=== PATIENT | female | born 1940 | race Caucasian/White ===

== ENCOUNTER 2024-12-12 07:28 | Emergency (ER) | payer MEDICARE ==
[~2024-12-12] VITALS: Ht 152.4 cm; Wt 70.8 kg
[2024-12-12] MEDS ORDERED: ACETAMINOPHEN ES 500 MG TABLET ONE (08:32)
[2024-12-12] MEDS: ACETAMINOPHEN 325 MG TABLET PO ONE (08:34)
[2024-12-12 09:55] VITALS: BP 130/75; TEMP 98.7; O2SAT 99
== END 2024-12-12 09:55 | disposition home or self-care (01) ==
LOC: ER 07:33
DX: S20.219A Contusion of unspecified front wall of thorax, initial encounter (principal); S00.33XA Contusion of nose, initial encounter; S09.90XA Unspecified injury of head, initial encounter; E78.5 Hyperlipidemia, unspecified; E11.9 Type 2 diabetes mellitus without complications; W01.10XA Fall on same level from slipping, tripping and stumbling with subsequent striking against unspecified object, initial encounter; Y93.89 Activity, other specified; Y92.89 Other specified places as the place of occurrence of the external cause; Y99.9 Unspecified external cause status
CPT/HCPCS: 70450-TC; 70486-TC; 71250-TC; 72125-TC